=== PATIENT | male | born 1965 | race Caucasian/White ===

== ENCOUNTER 2019-01-16 09:21 | Emergency (ER) | payer MEDICARE, MEDICAID ==
[~2019-01-16] VITALS: Ht 165.1 cm; Wt 63.6 kg
[2019-01-16 10:11] LABS: CLARITY,URINE CLEAR (Clear); COLOR,URINE YELLOW (Yellow); GLUCOSE, URINE NEGATIVE (Neg); KETONES,URINE >=80 mg/dl (Neg); LEUKOCYTE ESTERASE ,URINE NEGATIVE (Neg); NITRITES, URINE NEGATIVE (Neg); OCCULT BLOOD,URINE MODERATE (Neg); PROTEIN,URINE TRACE mg/dl (Neg); UROBILINOGEN,URINE 0.2 E.U/dL (0.2-1.0)
[2019-01-16 10:16] LABS: UA COLLECTION TYPE VOIDED
[2019-01-16 10:19] LABS: BACTERIA,URINE NONE SEEN /HPF (Neg); WBC,URINE 0-4 /HPF (0-4)
[2019-01-16 10:20] LABS: MUCUS STRANDS MODERATE /LPF (Neg)
[2019-01-16 10:21] LABS: SQUAMOUS EPITHELIAL CELL,UR FEW /LPF (FEW)
[2019-01-16] MEDS ORDERED: ondansetron/PF 4mg/2ml inj IV ONE (10:25)
[2019-01-16] MEDS ORDERED: famotidine/PF 10 mg/ml inj IV ONE (10:25)
[2019-01-16] MEDS ORDERED: normal saline 1000ml 1,000 ML IV ONE (10:25)
[2019-01-16] MEDS ORDERED: ketorolac trometh. 30mg/ml inj. IV ONE (10:25)
[2019-01-16 11:15] LABS: ALANINE AMINOTRANSFERASE 24 U/L (12-78); ALBUMIN 3.2 G/DL (3.4-5.0); ALKALINE PHOSPHATASE 71 IU/L (46-116); ANION GAP 11 (8-16); ASPARTATE AMINO TRANSFERASE 14 U/L (10-37); BILIRUBIN,TOTAL 0.7 MG/DL (0.1-1.0); BLOOD UREA NITROGEN 14 MG/DL (7-18); BUN/CREATININE RATIO 9.7 (5.4-32.0); CALCIUM 7.8 MG/DL (8.5-10.1); CHLORIDE 105 MMOL/L (99-107); CREATININE 1.45 MG/DL (0.60-1.10); GLUCOSE 80 MG/DL (70-104); POTASSIUM 3.6 MMOL/L (3.5-5.1); SODIUM 141 MMOL/L (135-145); TOTAL CARBON DIOXIDE 24.6 MMOL/L (24-32); TOTAL PROTEIN 6.5 G/DL (6.4-8.2); eGFR 51 ML/MIN
[2019-01-16 11:20] LABS: LIPASE 61 U/L (73-393); TROPONIN I < 0.04 NG/ML (0.0-0.05)
--- NOTE | 2019-01-16 12:18 | NUR ---
ON ASSESSMENT PT REPORTS RELIEF OF SYMPTOMS. NO CURRENT N/V OR ABDOMINAL PAIN. PT HAS BEEN SNACKING ON CRACKERS AND ABLE TO TOLERATE JUICE.
[2019-01-16 12:33] LABS: BASOPHILS % (AUTO) 0.6 % (0-1); EOSINOPHILS % (AUTO) 0.1 % (0-6); HEMATOCRIT 41.4 % (42.0-52.0); HEMOGLOBIN 14.1 g/dl (14.0-17.9); LYMPHOCYTES # (AUTO) 0.5 X10'3 (1.1-4.8); LYMPHOCYTES % (AUTO) 10.4 % (21-51); MEAN CORPUSCULAR HEMOGLOBIN 29.5 PG (27.0-31.0); MEAN CORPUSCULAR VOLUME 86.8 FL (78-98); MEAN PLATELET VOLUME 7.1 FL (7.4-10.4); MONOCYTES # (AUTO) 0.4 X10'3 (0-0.9); MONOCYTES % (AUTO) 9.1 % (2-12); NEUTROPHILS # (AUTO) 3.8 X10'3 (1.8-7.7); NEUTROPHILS % (AUTO) 79.8 % (42-75); PLATELET COUNT 84 X10'3 (140-440); RED BLOOD COUNT 4.76 X10'6 (4.70-6.10); RED CELL DISTRIBUTION WIDTH 13.2 % (11.5-14.5); WHITE BLOOD COUNT 4.8 X10'3 (4.5-11.0)
[2019-01-16] MEDS ORDERED: ONDA8TAB6 PO (13:10)
[2019-01-16 13:13] VITALS: BP 113/73
== END 2019-01-16 13:16 | disposition home or self-care (01) ==
LOC: ER 09:22
DX: R31.9 Hematuria, unspecified (principal); R19.7 Diarrhea, unspecified; R10.10 Upper abdominal pain, unspecified; E78.00 Pure hypercholesterolemia, unspecified; I10 Essential (primary) hypertension
CPT/HCPCS: 36415; 80053; 81001; 83690; 84484; 85025; 85610; 96361; 96374; 96375; 99283; J1885; J2405; J3490; J7030

== ENCOUNTER 2019-01-27 | Emergency (ER) | payer MEDICARE, MEDICAID ==
[~2019-01-27] VITALS: Ht 165.1 cm; Wt 65.0 kg
[~2019-01-27] MED LIST: ONDA8TAB6 PO
[2019-01-27] MEDS ORDERED: hydrocortisone 1% cream 28gm TP STA (01:32)
[2019-01-27] MEDS ORDERED: HYDR28CR14 TOP (01:35)
[2019-01-27 01:56] VITALS: BP 116/73
== END 2019-01-27 01:55 | disposition home or self-care (01) ==
LOC: ER
DX: L29.0 Pruritus ani (principal); E78.00 Pure hypercholesterolemia, unspecified; I10 Essential (primary) hypertension; Z79.899 Other long term (current) drug therapy
CPT/HCPCS: 99283

== ENCOUNTER 2019-06-01 08:14 | Emergency (ER) | payer MEDICARE, MEDICAID ==
[~2019-06-01] VITALS: Ht 165.1 cm; Wt 63.0 kg
[~2019-06-01 08:14] MED LIST changes: +HYDR28CR14 TOP
[2019-06-01 08:15] VITALS: BP 168/96
[2019-06-01] MEDS ORDERED: PENI250T2 PO (08:35)
== END 2019-06-01 08:40 | disposition home or self-care (01) ==
LOC: ER 08:14
DX: K08.89 Other specified disorders of teeth and supporting structures (principal); E78.00 Pure hypercholesterolemia, unspecified; I10 Essential (primary) hypertension; Z88.2 Allergy status to sulfonamides
CPT/HCPCS: 99283

== ENCOUNTER 2019-06-17 16:35 | Emergency (ER) | payer MEDICARE, MEDICAID ==
[~2019-06-17] VITALS: Ht 165.1 cm; Wt 65.0 kg
[2019-06-17] MEDS ORDERED: ondansetron/PF 4mg/2ml inj IV ONE (17:20)
[2019-06-17] MEDS ORDERED: LORazepam 2 mg/ml vial IV ONE (17:25)
[2019-06-17] MEDS ORDERED: glucagon, human recombinant 1mg kit IM ONE (17:25)
--- NOTE | 2019-06-17 18:29 | NUR ---
ASSUMINIG CARE FROM DAY SHIFT RN. PT IS A&OX4 AND COOPERATIVE. FAMILY HAS STEPPED AWAY AND WILL RETURN SHORTLY. PT REPORTS 2 OUT OF 10 DISCOMFORT TO HIS THROAT. STATES HE IS UNABLE TO SWALLOW HIS SECRETIONS HE TRIES AND "IT JUST COMES BACK UP". VSS. ANDRADE DANG AT BEDSIDE FOR REAVAL.
--- NOTE | 2019-06-17 19:13 | NUR ---
DR. DE LOS SANTOS PAGED FOR GI CONSULT AND HAS ALREADY SPOKEN WITH ANDRADE DANG.
[2019-06-17] MEDS ORDERED: LIDOcaine Viscous 15ml cup ONE (19:35)
[2019-06-17] MEDS ORDERED: MIDAZolam 5mg/5ml vial ONE (19:35)
[2019-06-17] MEDS ORDERED: fentaNYL/PF 50MCG/1 ML 2ML syringe ONE (19:35)
--- NOTE | 2019-06-17 19:46 | NUR ---
TAKEN TO GI LAB. PTS FAMILY NOT YET BACK IN ER. VSS
[2019-06-17 19:47] VITALS: BP 134/102
[2019-06-17 20:04] VITALS: BP 143/86
[2019-06-17 20:13] VITALS: BP 153/88
[2019-06-17 20:23] VITALS: BP 136/88
[2019-06-17 20:33] VITALS: BP 131/91
[2019-06-17 21:45] VITALS: BP 118/66
--- NOTE | 2019-06-17 21:48 | NUR ---
PT WITH NO FURTHER SWALLOWING ISSUES. STABLE VS. AWAKE AND ALERT. REPROTS SOME SLEEPYNESS.
--- NOTE | 2019-06-17 21:55 | NUR ---
ANDRADE DANG TALKING WITH PT ABOUT DC. PT WITH STABLE VS.
[2019-06-17] MEDS ORDERED: OMEP40CA13 PO (22:02)
== END 2019-06-17 21:55 | disposition home or self-care (01) ==
LOC: ER 16:35
DX: T18.128A Food in esophagus causing other injury, initial encounter (principal); E78.00 Pure hypercholesterolemia, unspecified; I10 Essential (primary) hypertension; Z88.2 Allergy status to sulfonamides; Z79.899 Other long term (current) drug therapy; Y92.89 Other specified places as the place of occurrence of the external cause
CPT/HCPCS: 43247; 96374; 96375; 99152; 99285; C1773; J1610; J2250; J2405; J3010; J7040; A4620

== ENCOUNTER 2019-09-27 20:25 | Emergency (ER) | payer MEDICARE, MEDICAID ==
[~2019-09-27] VITALS: Ht 165.1 cm; Wt 51.8 kg
[2019-09-27] MEDS ORDERED: glucagon, human recombinant 1mg kit IV ONE (20:45)
--- NOTE | 2019-09-27 21:07 | NUR ---
Per Dr. Beach, Dr. Hernadez is coming in to scope patient.
--- NOTE | 2019-09-27 21:25 | NUR ---
glucagon and PO water unsuccessful in dislodging food bolus. Dr Gonzáles at pt bedside.
[2019-09-27 21:26] LABS: BASOPHILS % (AUTO) 0.4 % (0-1); EOSINOPHILS # (AUTO) 0.2 X10'3 (0-0.9); EOSINOPHILS % (AUTO) 2.7 % (0-6); HEMATOCRIT 44.5 % (42.0-52.0); LYMPHOCYTES # (AUTO) 1.5 X10'3 (1.1-4.8); LYMPHOCYTES % (AUTO) 17.1 % (21-51); MEAN CORPUSCULAR HEMOGLOBIN 29.4 PG (27.0-31.0); MEAN CORPUSCULAR HGB CONC 33.7 g/dL (33.0-36.5); MEAN CORPUSCULAR VOLUME 87.1 FL (78-98); MEAN PLATELET VOLUME 7.6 FL (7.4-10.4); MONOCYTES # (AUTO) 0.4 X10'3 (0-0.9); MONOCYTES % (AUTO) 4.9 % (2-12); NEUTROPHILS # (AUTO) 6.6 X10'3 (1.8-7.7); NEUTROPHILS % (AUTO) 74.9 % (42-75); PLATELET COUNT 141 X10'3 (140-440); RED CELL DISTRIBUTION WIDTH 13.6 % (11.5-14.5); WHITE BLOOD COUNT 8.8 X10'3 (4.5-11.0)
--- NOTE | 2019-09-27 21:38 | NUR ---
Mother Pat [phone] contacted and notified of pt condition per request of patient.
[2019-09-27] MEDS ORDERED: PANT-47 PO (21:43)
[2019-09-27 21:44] VITALS: BP 120/76
[2019-09-27] MEDS ORDERED: fentaNYL/PF 50MCG/1 ML 2ML syringe ONE (21:49)
[2019-09-27] MEDS ORDERED: MIDAZolam 5mg/5ml vial ONE (21:49)
[2019-09-27] MEDS ORDERED: LIDOcaine Viscous 15ml cup ONE (21:49)
[2019-09-27 21:52] LABS: ALANINE AMINOTRANSFERASE 31 U/L (12-78); ALBUMIN 4.3 G/DL (3.4-5.0); ALBUMIN/GLOBULIN RATIO 1.3 (1.1-1.5); ALKALINE PHOSPHATASE 97 IU/L (46-116); ANION GAP 9 (8-16); ASPARTATE AMINO TRANSFERASE 20 U/L (10-37); BILIRUBIN,TOTAL 0.5 MG/DL (0.1-1.0); BLOOD UREA NITROGEN 17 MG/DL (7-18); BUN/CREATININE RATIO 9.9 (5.4-32.0); CALCIUM 9.1 MG/DL (8.5-10.1); CHLORIDE 103 MMOL/L (99-107); CREATININE 1.71 MG/DL (0.60-1.10); GLUCOSE 140 MG/DL (70-104); SODIUM 140 MMOL/L (135-145); TOTAL CARBON DIOXIDE 28.5 MMOL/L (24-32); TOTAL PROTEIN 7.6 G/DL (6.4-8.2); eGFR 42 ML/MIN
[2019-09-27 22:04] VITALS: BP 116/64
[2019-09-27 22:13] VITALS: BP 100/60
[2019-09-27 22:23] VITALS: BP 110/65
[2019-09-27 22:33] VITALS: BP 110/64
--- NOTE | 2019-09-27 22:46 | NUR ---
PATIENT BACK IN ER AFTER GI LAB. RESTING COMFORTABLY, DROWSY.
--- NOTE | 2019-09-27 22:58 | NUR ---
PT awake, A/O. Denies N/V, or pain. Gag reflex absent at this time.
[2019-09-27 23:35] VITALS: BP 120/67
== END 2019-09-27 23:38 | disposition home or self-care (01) ==
LOC: ER 20:25
DX: T17.228A Food in pharynx causing other injury, initial encounter (principal); E78.00 Pure hypercholesterolemia, unspecified; I10 Essential (primary) hypertension; Z88.2 Allergy status to sulfonamides; Z79.899 Other long term (current) drug therapy; X58.XXXA Exposure to other specified factors, initial encounter; Y93.89 Activity, other specified; Y92.89 Other specified places as the place of occurrence of the external cause; Y99.8 Other external cause status
CPT/HCPCS: 36415; 43247; 43248; 80053; 85025; 96374; 99152; 99285; J1610; J2250; J3010; J7040; 99284; A4620

== ENCOUNTER 2020-06-08 22:09 | Emergency (ER) | payer MEDICARE, MEDICAID ==
[~2020-06-08] VITALS: Ht 165.1 cm; Wt 68.2 kg
[~2020-06-08 22:09] MED LIST changes: +PANT-47 PO
--- NOTE | 2020-06-08 22:32 | NUR ---
Patient went to Radiology.
[2020-06-08] MEDS ORDERED: POLY17PO10 PO (22:34)
[2020-06-08] MEDS ORDERED: BISA10SU60 RC (22:34)
[2020-06-08] MEDS ORDERED: ATOR20TA66 PO (22:40)
[2020-06-08 22:46] VITALS: BP 121/70
== END 2020-06-08 22:49 | disposition home or self-care (01) ==
LOC: ER 22:09
DX: K59.00 Constipation, unspecified (principal); E78.00 Pure hypercholesterolemia, unspecified; I10 Essential (primary) hypertension; Z88.2 Allergy status to sulfonamides; Z79.899 Other long term (current) drug therapy
CPT/HCPCS: 74018; 99283

== ENCOUNTER 2021-11-03 19:48 | Emergency (ER) | payer MEDICARE, MEDICAID ==
[~2021-11-03] VITALS: Ht 165.1 cm; Wt 63.4 kg
[~2021-11-03 19:48] MED LIST changes: +ATOR20TA66 PO; +BISA10SU60 RC
[2021-11-03 20:54] VITALS: BP 132/83
[2021-11-03] MEDS ORDERED: DOXY100C2 PO (22:55)
[2021-11-03] MEDS ORDERED: CLOT15CR11 TOP (22:55)
[2021-11-03] MEDS ORDERED: DOCU-148 PO (22:56)
== END 2021-11-03 23:23 | disposition home or self-care (01) ==
LOC: ER 19:49
DX: K59.00 Constipation, unspecified (principal); B35.6 Tinea cruris; N50.812 Left testicular pain; E78.00 Pure hypercholesterolemia, unspecified; I10 Essential (primary) hypertension; Z88.2 Allergy status to sulfonamides; Z79.2 Long term (current) use of antibiotics; Z79.899 Other long term (current) drug therapy
CPT/HCPCS: 99283

== ENCOUNTER 2024-04-17 10:04 | Emergency (ER) | payer MEDICARE, MEDICAID ==
[~2024-04-17] VITALS: Ht 165.1 cm; Wt 67.0 kg
[~2024-04-17 10:04] MED LIST changes: +CLOT15CR11 TOP; +DOCU-148 PO
[2024-04-17] MEDS ORDERED: CLIN-214 PO (11:31)
[2024-04-17] MEDS: clindamycin 150mg capsule PO ONE (11:40)
[2024-04-17] MEDS: ketorolac trometh 15mg/ml vial 15 MG/ML ML IM ONE (11:41)
[2024-04-17 11:49] VITALS: BP 130/87; PULSE 70; RESP 16; TEMP 98.9; O2SAT 98
== END 2024-04-17 11:45 | disposition home or self-care (01) ==
LOC: ER 10:04
DX: K08.89 Other specified disorders of teeth and supporting structures (principal); H92.02 Otalgia, left ear; E78.00 Pure hypercholesterolemia, unspecified; I10 Essential (primary) hypertension; Z88.2 Allergy status to sulfonamides; Z79.899 Other long term (current) drug therapy
CPT/HCPCS: 96372; 99283; J1885